=== PATIENT | male | born 1975 | race Caucasian/White ===

== ENCOUNTER 2017-04-21 11:47 | Emergency (ER) | payer MEDICAID ==
[~2017-04-21] VITALS: Ht 190.5 cm; Wt 136.0 kg
[~2017-04-21 11:47] MED LIST: ZOFR4TAB3 PO
[2017-04-21 11:49] VITALS: BP 183/104; PULSE 95; RESP 18; TEMP 98; O2SAT 98
--- NOTE | 2017-04-21 13:49 | PD ---
HPI Chief Complaint: Complaint Time Seen by Provider: 13:43 Travel History International Travel<30 days: No Contact w/Intl Traveler<30days: No Traveled to known affect area: No History of Present Illness HPI This is a 41-year-old male who presents for evaluation of testicle pain. Symptoms started one month ago. Pain is an intermittent sharp pain in the right testicle with no obvious aggravating or relieving factors. He denies any dysuria, urethral discharge, nausea or vomiting, fevers or chills. He has never had this problem before. He has no other complaints at this time. [facility] Social History Alcohol Use: No Tobacco Use: Yes (1 ppd) Substance Use: No Allergies-Medications (Allergen,Severity, Reaction): Coded Allergies: codeine (Unverified Allergy, Severe, 04/21/17) Reported Meds & Prescriptions Reported Meds & Active Scripts Active Zofran ODT (Ondansetron HCl) 4 Mg Tab 4 Mg PO Q6 PRN May substitute, non-ODT form Review of Systems General / Constitutional: No: Fever, Chills Gastrointestinal: No: Nausea, Vomiting, Abdominal Pain Genitourinary: Positive: Other (right testicle pain), No: Dysuria Physical Exam Narrative GENERAL: Well-nourished male in no acute distress SKIN: Warm and dry. HEAD: Atraumatic. Normocephalic. EYES: Pupils equal and round. No scleral icterus. No injection or drainage. ENT: No nasal bleeding or discharge. Mucous membranes pink and moist. NECK: Trachea midline. No JVD. CARDIOVASCULAR: Regular rate and rhythm. No murmur appreciated. RESPIRATORY: No accessory muscle use. Clear to auscultation. Breath sounds equal bilaterally. GASTROINTESTINAL: Abdomen soft, non-tender, nondistended. Hepatic and splenic margins not palpable. examination reveals no cutaneous lesions. No urethral discharge. Nontender descended testicles bilaterally with no scrotal changes. No obvious inguinal hernias. MUSCULOSKELETAL: No obvious deformities. No clubbing. No cyanosis. No edema. Data Data Last Documented VS Vital Signs Date Time Temp Pulse Resp B/P (MAP) Pulse Ox O2 Delivery O2 Flow Rate FiO2 04/21/17 15:30 04/21/17 11:49 98.0 95 18 98 Orders Orders Ua Includes Microscopic (04/21/17 13:46) Gc And Chlamydia Pcr (04/21/17 13:46) Us Testicles W Doppler (04/21/17 13:46) Labs Laboratory Tests Test 04/21/17 14:20 Urine Color YELLOW Urine Turbidity CLEAR Urine pH 6.0 Urine Specific [place] 1.031 Urine Protein 30 mg/dL Urine Glucose (UA) NEG mg/dL Urine Ketones NEG mg/dL Urine Occult Blood NEG Urine Nitrite NEG Urine Bilirubin NEG Urine Urobilinogen LESS THAN 2.0 MG/DL Urine Leukocyte Esterase NEG Urine WBC LESS THAN 1 /hpf Urine Mucus FEW /lpf MDM Medical Decision Making Medical Screen Exam Complete: Yes Emergency Medical Condition: Yes Medical Record Reviewed: Yes Differential Diagnosis Epididymitis, ovarian torsion, ovarian cysts, orchitis, malignancy, inguinal hernia, abscess Narrative Course 41-year-old male with intermittent right testicle pain for 1 month with no other illness. Ultrasound, GC probe and urinalysis have been ordered. Ultrasound reveals small right epididymal cyst otherwise unremarkable. Etiology of this patient's pain is unknown. He'll be referred to urology as an outpatient. Diagnosis Primary Impression: Testicle pain Referrals: John Huerta MD Additional Instructions: Take Tylenol or Motrin for pain. Follow-up with a urologist such as Dr. Huerta and return for any emergent medical conditions. Med/Other Pt SpecificInfo: No Change to Meds Disposition: 01 DISCHARGE HOME Condition: Stable Austin Ribeiro Apr 21, 2017 13:49
[2017-04-21 14:49] LABS: BILIRUBIN, URINE NEG (NEG); BLOOD, URINE NEG (NEG); GLUCOSE,URINE NEG (NEG); KETONE, URINE NEG (NEG); MUCUS URINE FEW /lpf (OCC); NITRITE,URINE NEG (NEG); URINE COLOR YELLOW (YELLW/STRAW); URINE LEUKOCYTE ESTERASE NEG (NEG)
--- NOTE | 2017-04-21 15:26 | RADRPT ---
EXAM DATE/TIME: 04/21/2017 14:43 [facility] COMPARISON: No previous studies available for comparison. INDICATIONS : Right testicle pain. MEDICAL HISTORY : Right testicle pain. SURGICAL HISTORY : Right knee surgery. ENCOUNTER: Initial ACUITY: 1 month PAIN SCORE: 4/10 LOCATION: Bilateral scrotum. MEASUREMENTS: RIGHT TESTICLE: 3.9 x 3.3 x 2.3cm LEFT TESTICLE: 3.6 x 3.4 x 1.9cm FINDINGS: RIGHT TESTICLE: Small hydrocele and varicocele are evident. Small right epididymal cyst. Physical normal. LEFT TESTICLE: Trace hydrocele. Trace rectocele testicle normal SCROTUM: Within normal limits. CONCLUSION: Small right epididymal cyst. I do not etiology for the pain. Symmetrical flow.. Vega Varela MD FACR on April 21, 2017 at 15:22 Board Certified Radiologist. This report was verified electronically.
== END 2017-04-21 15:45 | disposition home or self-care (01) ==
LOC: NEPD 11:47
DX: N50.811 Right testicular pain (principal); N50.3 Cyst of epididymis; F17.200 Nicotine dependence, unspecified, uncomplicated; Z88.5 Allergy status to narcotic agent
CPT/HCPCS: 76870; 81001; 87491; 87591; 93975; 99284